=== PATIENT | male | born 1980 | race Caucasian/White ===

== ENCOUNTER 2024-05-26 10:28 | Day surgery (SDC) | payer OTHER ==
[~2024-05-26] VITALS: Ht 170.2 cm; Wt 77.8 kg
[~2024-05-26 10:28] MED LIST: BUPR1FIL SL; FLUO-365 PO
[2024-05-26] MEDS ORDERED: LR 1,000 ML IV SCH ×3 (10:45→15:10)
[2024-05-26] MEDS ORDERED: ONDANSETRON 4MG 2ML VIAL As Ordered ONE (11:52)
[2024-05-26] MEDS ORDERED: ROCURONIUM BROMIDE 50MG/5ML VIAL As Ordered ONE (11:52)
[2024-05-26] MEDS ORDERED: LIDOCAINE 2% 100MG/5ML SDV (FOR ANES.) As Ordered ONE (11:52)
[2024-05-26] MEDS ORDERED: propofoL 200 MG/20 ML VIAL As Ordered ONE (11:52)
[2024-05-26] MEDS ORDERED: KETOROLAC 60MG 2ML VIAL As Ordered ONE (11:52)
[2024-05-26] MEDS ORDERED: fentaNYL 100 MCG/2 ML INJECTION As Ordered ONE (12:18)
[2024-05-26] MEDS ORDERED: MIDAZOLAM INJ 2MG/2ML VIAL As Ordered ONE (12:20)
[2024-05-26] MEDS ORDERED: ACETAMINOPHEN 1000MG 100ML IV BAG As Ordered ONE (12:40)
[2024-05-26] MEDS: LIDOCAINE W/EPINEPHRINE 1% 20ML VIAL As Ordered ONE (13:00)
[2024-05-26] MEDS ORDERED: SUGAMMADEX SODIUM 500 MG/5 ML VIAL (BRIDION) As Ordered ONE (13:08)
[2024-05-26] MEDS ORDERED: diphenhydrAMINE 50MG/ML VIAL IV PRN (13:20)
[2024-05-26] MEDS ORDERED: METOCLOPRAMIDE INJ 10MG/2ML VIAL IV PRN (13:20)
[2024-05-26] MEDS ORDERED: NALBUPHINE HCL 1MG/0.1ML (100MG/10ML) MDV IV PRN (13:20)
[2024-05-26] MEDS ORDERED: ONDANSETRON 4MG 2ML VIAL IV PRN (13:20)
[2024-05-26 14:50] VITALS: BP 138/82; TEMP 97.2; O2SAT 97
== END 2024-05-26 15:04 | disposition home or self-care (01) ==
LOC: M SDC 10:28
PROVIDERS: ATTEND Dentist Oral and Maxillofacial Surgery
DX: K02.9 Dental caries, unspecified (principal); F17.210 Nicotine dependence, cigarettes, uncomplicated; F12.10 Cannabis abuse, uncomplicated; Z79.899 Other long term (current) drug therapy
CPT/HCPCS: 88300; D7210; D9223; J0131; J1100; J1885; J2250; J2405; J3010